=== PATIENT | male | born 2000 | race Caucasian/White ===

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

== ENCOUNTER 2021-12-14 21:43 | Emergency (ER) | payer SELFPAY ==
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
[2021-12-14 22:52] VITALS: BP 126/79
== END 2021-12-14 22:52 | disposition home or self-care (01) ==
LOC: EDUNIT# 21:43 → ER 21:48
DX: S62.394A Other fracture of fourth metacarpal bone, right hand, initial encounter for closed fracture (principal); X50.1XXA Overexertion from prolonged static or awkward postures, initial encounter
CPT/HCPCS: 29130; 73130